=== PATIENT | female | born 1980 | race Caucasian/White ===

== ENCOUNTER 2023-05-09 11:35 | Emergency (ER) | payer SELFPAY ==
[2023-05-09 12:28] VITALS: BP 152/94; PULSE 104; RESP 16; TEMP 37.2; O2SAT 93; BMI 34.5
--- NOTE | 2023-05-09 12:29 | ED.GENADULT ---
HPI - General Adult General Chief complaint: ETOH/Substance Use Stated complaint: Needs detox Time Seen by Provider: 05/09/23 16:01 Source: patient and family Mode of arrival: ambulatory Limitations: no limitations History of Present Illness HPI narrative: 42 yo female here seeking detox from alcohol. Last drink 1 hr [employer]. No additional substance use. No SI/HI. No physical complaints. Also complaining of right lower dental pain. Related Data Previous Rx's Medication Instructions Recorded amoxicillin 875 mg-potassium 1 tab PO BID #14 tabs 05/09/23 clavulanate 125 mg tablet chlordiazepoxide HCl 25 mg capsule 25 mg PO Q6H PRN alcohol 05/09/23 withdrawal #12 caps Allergies Allergy/AdvReac Type Severity Reaction Status Date / Time No Known Allergies Allergy Verified 05/09/23 12:31 Review of Systems Review of Systems: Yes all other systems are reviewed and are negative Constitutional: Constitutional: Reports no additional constitutional complaints, Denies body ache(s), Denies chills, Denies fever(s), Denies headache(s) and Denies weakness Eyes: Eyes: Reports no additional eye complaints and Denies change in vision ENT: Reports system reviewed and no additional complaints, except as documented, Reports dental pain, Denies dizziness, Denies headache(s), Denies nasal congestion, Denies nasal discharge and Denies neck pain Cardiovascular: Cardiovascular: Reports no additional cardiovascular complaints, Denies chest pain, Denies leg edema and Denies dyspnea Respiratory: Respiratory: Reports no additional respiratory complaints, Denies cough and Denies dyspnea Gastrointestinal: Gastrointestinal: Reports no additional gastrointestinal complaints, Denies abdominal pain, Denies diarrhea, Denies nausea and Denies vomiting Genitourinary: Genitourinary: Reports no additional female genitourinary complaints and Denies urinary incontinence Musculoskeletal: Musculoskeletal: Reports no additional musculoskeletal complaints, Denies back pain, Denies arthralgias, Denies joint swelling, Denies neck pain, Denies numbness and Denies tingling Integumentary/Breasts: Skin/Breast: Reports system reviewed and no additional complaints, except as docu and Denies rash Neurologic: Reports system reviewed and no additional complaints, except as documented, Denies Abnormal speech present, Denies dizziness, Denies headache(s), Denies numbness, Denies tingling and Denies weakness PMFSH Past Medical History Attestation statement: The following information was validated with the patient. Source: old records reviewed and nursing notes reviewed Social History Advance Directives: No Advance Directives Information Provided: No Physical Exam ED Vital Signs: Vital Signs - 24 hr 05/09/23 12:28 Temperature 98.9 F Pulse Rate 104 H Respiratory Rate 16 Blood Pressure 152/94 H Pulse Oximetry 93 Oxygen Delivery Method Room Air BMI result Body Mass Index 34.5 Const General: cooperative, healthy appearing, comfortable and no acute distress Orientation/consciousness: patient oriented x3 Limitations: no limitations HENMT Head: Yes normal to inspection Ears: hearing grossly normal bilaterally General nose exam: Normal external nose present Face and sinus: Yes normal facial exam Mouth: Normal oral and palatal mucosa present Teeth image: 1. +gum swelling/erythema and TTP. No fluctuance or abscess No trismus Throat: Yes posterior oropharynx normal Eyes General: appearance normal, both eyes and all related structures Pupils: Equal, round and reactive pupils present Neck Neck: Yes normal visual inspection Chest Chest palpation & inspection: normal inspection of the chest Resp Effort & Inspection: normal respiratory effort Auscultation: clear to auscultation bilaterally Cardio Rate: regular rate Rhythm: regular rhythm Peripheral pulses: Peripheral pulses 2+ throughout GI Inspection: Yes normal to inspection Palpation (GI): Soft to palpation and nontender Auscultation: normal bowel sounds Back/Spine/Pelvis Thoracic/Lumbar Spine: thoracic and lumbar spine normal to inspection Skin General skin exam: no rashes or lesions noted Neuro General: patient oriented x3, no focal motor deficits and normal sensation to monofilament Cranial nerves: Yes Equal, round and reactive pupils present Cognition (Neuro): normal cognition Speech: No Abnormal speech present Gait exam (Neuro): Normal gait present Motor exam (neuro): 5/5 motor strength present throughout Extrem General: Yes normal to inspection Course Course Course Narrative: This is a rapid medical exam. Deferred additional HPI, ROS, PE to primary provider. 42 yo female w/ history of alcohol use disorder here seeking detox from alcohol, last drink 1 hr [employer]. No additional substance use. No SI/HI. Will need labs, JOSEPH, covid screen VSS Reevaluation(s) Reevaluation #1: Patient what with the life skills coach. Unfortunately there are no available detox beds a [place]. Patient is here with her parents. She has plans to stay with her parents this evening. I spoke to both her parents. They are willing to take a prescription for Librium and dispense this to the patient under their monitoring. The are were the patient should not be mixing alcohol with benzodiazepines. They were provided a resource list from a recovery team. Reviewed worrisome signs and symptoms of when to return to the emergency room. Comfortable plan for discharge home. Medical Decision Making Medical Decision Making [facility] Narrative: 42 yo female here seeking detox from alcohol. Last drink 1 hr [employer]. No additional substance use. No SI/HI. No physical complaints. Also c/o right lower dental pain Will need labs, JOSEPH, d/w with life skills coach Mild local swelling around tooth with no s/s of cellulitis/abscess Differential Diagnosis Differential Diagnoses: The differential diagnosis associated with the presentation includes Dental infection No evidence of cellulitis, dental abscess, Edward's angina Alcohol use disorder Admission/Observation Consideration of admission/observation: Escalation of care including admission/observation considered Patient does not appear to be actively withdrawing from alcohol requiring IV benzodiazepines, phenobarbital and or admission for further management Lab Data [facility] Lab Attestation statement: I reviewed the patient's lab results. Mildly elevated LFTs likely secondary to alcohol use disorder 05/09/23 13:58 05/09/23 13:58 Labs: Lab Results 05/09/23 Range/Units 13:58 WBC 7.0 (4.8-10.8) X10*3/uL RBC 4.01 L (4.20-5.50) X10*6/uL Hgb 13.1 (12.0-16.0) g/dl Hct 37.1 (37.0-47.0) % MCV 92.5 (80.0-98.0) fL MCH 32.7 (27.0-33.0) pg MCHC 35.3 H (31.0-35.0) g/dl RDW 12.4 (11.0-16.0) % Plt Count 145 L (160-400) X10*3/uL MPV 8.7 L (9.4-12.3) fL Immature Gran % (Auto) 0.3 (0.0-0.4) % Neut % (Auto) 69.0 (45-73) % Lymph % (Auto) 23.4 (20-40) % [place] % (Auto) 5.9 (2-11) % Eos % (Auto) 1.1 (0-4) % Baso % (Auto) 0.3 (0-2) % Lymph # (Auto) 1.6 (1.2-4.9) X10*3/uL [place] # (Auto) 0.4 (0.1-1.2) X10*3/uL Eos # (Auto) 0.1 (0.0-0.4) X10*3/uL Baso # (Auto) 0.0 (0.0-0.2) X10*3/uL Abs Immat Gran (auto) 0.02 (0.00-0.03) X10*3/uL Absolute Neuts (auto) 4.8 (2.0-8.3) x10*3/uL Absolute Nucleated RBC 0.000 (0.0-0.012) X10*3/uL Nucleated RBC % (auto) 0.0 (0.0-0.2) /100WBC Sodium 137 (135-145) mmol/L Potassium 3.4 (3.3-5.1) mmol/L Chloride 96 (96-108) mmol/L Carbon Dioxide 27 (22-29) mmol/L Anion Gap 17 (12-20) BUN 7 L (9-16) mg/dL Creatinine 0.63 (0.5-1.4) mg/dL Estim Creat Clear Calc 138.0 Estimated GFR > 60 Random Glucose 126 H (60-115) mg/dL Calcium 8.6 (8.4-10.2) mg/dL Total Bilirubin 0.8 (0.0-1.0) mg/dL Direct Bilirubin 0.5 (0.0-0.5) mg/dL AST 368 H (5-31) U/L ALT 92 H (0-31) U/L Alkaline Phosphatase 190 H (39-117) U/L Total Protein 7.1 (6.5-8.0) g/dL Albumin 4.2 (3.5-5.0) g/dL Ethyl Alcohol 426 H* mg/dL COVID-19 ([facility]) Negative (Negative) COVID-19 Clin Com See Note Independent Historian Clinical information obtained from an independent historian. History obtained from or confirmed by: Parent Discharge Plan Discharge Clinical Impression: Alcohol use disorder, Toothache Patient Disposition: Home, Self-Care Instructions: Toothache (ED), Alcohol Use Disorder (ED) Additional Instructions: Use resources provided to call for detox bed Prescriptions: New chlordiazepoxide HCl 25 mg capsule 25 mg PO Q6H PRN (Reason: alcohol withdrawal) Qty: 12 0RF amoxicillin-pot clavulanate 875-125 mg tablet 1 tab PO BID Qty: 14 0RF Referrals: Physician,Unknown J [Primary Care Provider] - 1 week
[2023-05-09 14:03] LABS: MANUAL DIFF FLAG NO
[2023-05-09 14:06] LABS: Basophils Percent Auto 0.3 % (0-2); Eosinophils Absolute Auto 0.1 X10*3/uL (0.0-0.4); Eosinophils Percent Auto 1.1 % (0-4); Hematocrit 37.1 % (37.0-47.0); Hemoglobin 13.1 g/dl (12.0-16.0); Imm Gran Abs Auto 0.02 X10*3/uL (0.00-0.03); Imm Gran Pct Auto 0.3 % (0.0-0.4); Lymphocytes Absolute Auto 1.6 X10*3/uL (1.2-4.9); Lymphocytes Percent Auto 23.4 % (20-40); Mean Corpuscular HGB Conc 35.3 g/dl (31.0-35.0); Mean Corpuscular Hemoglobin 32.7 pg (27.0-33.0); Mean Corpuscular Volume 92.5 fL (80.0-98.0); Mean Platelet Volume 8.7 fL (9.4-12.3); Monocytes Absolute Auto 0.4 X10*3/uL (0.1-1.2); Monocytes Percent Auto 5.9 % (2-11); Neutrophils Absolute Auto 4.8 x10*3/uL (2.0-8.3); Platelet Count 145 X10*3/uL (160-400); Red Blood Count 4.01 X10*6/uL (4.20-5.50); Red Cell Distribution Width 12.4 % (11.0-16.0)
[2023-05-09 14:17] LABS: Alanine Aminotransferase 92 U/L (0-31); Albumin Level 4.2 g/dL (3.5-5.0); Alkaline Phosphatase 190 U/L (39-117); Anion Gap 17 (12-20); Aspartate Amino Transferase 368 U/L (5-31); Bilirubin Direct 0.5 mg/dL (0.0-0.5); Bilirubin Total 0.8 mg/dL (0.0-1.0); Blood Urea Nitrogen 7 mg/dL (9-16); Calcium 8.6 mg/dL (8.4-10.2); Carbon Dioxide 27 mmol/L (22-29); Chloride 96 mmol/L (96-108); Estimated Glomerular Filt Rate > 60; Ethanol 426 mg/dL; Glucose Random 126 mg/dL (60-115); Potassium 3.4 mmol/L (3.3-5.1); Sodium 137 mmol/L (135-145); Total Protein 7.1 g/dL (6.5-8.0)
[2023-05-09 14:30] LABS: COVID-19 Test Negative (Negative); IDNOW Serial# BCCEAD1C
--- OUTSIDE RECORDS SUMMARY | 2023-05-09 16:28 | XMS_ITS | Continuity of Care Document ---
Author Name Unknown Organization [facility] Address [address] [place] [address]- Care Team Providers Care Banding Machine Operator Name Role Phone Uday Fink MD Primary Care Physician Encounter [facility] Date(s): 05/06/23 - 05/06/[address] [address]- Discharge Disposition: A-D/C Home Attending Physician: Deshaun Uribe MD Admitting Physician: Deshaun Uribe MD Referring Physician: Not on Staff, Referring MD Allergies, Adverse Reactions, Alerts No Known Allergies Immunizations Given and Recorded Vaccine Date Status Refusal Reason SARS-CoV-2 (COVID-19) mRNA BNT-162b2 vac 10/24/20 Given SARS-CoV-2 (COVID-19) mRNA BNT-162b2 vac 10/03/20 Given Medications Percocet-5/325 325 mg-5 mg oral tablet 1 tablet, By Mouth, Every 6 hours, PRN Pain, # 12 tablet, 0 Refills, Maintenance Start Date: 12/09/10 Status: Ordered Toradol Inj 15 mg, Injection, IV Push Slowly, Once, STAT, 05/06/23 15:58:00 EST, Stop date 05/06/23 15:58:00 EST Start Date: 05/06/23 Stop Date: 05/06/23 Status: Completed Vital Signs Most recent to oldest [Reference Range]: 1 2 3 Height 167 cm (05/06/23 12:36 PM) Weight 85.5 kg (05/06/23 12:36 PM) Oxygen Saturation [94-100 %] 97 % (05/06/23 6:43 PM) 92 % *L* (05/06/23 4:24 PM) 96 % (05/06/23 12:36 PM) Pulse Rate [55-90 bpm] 112 bpm *H* (05/06/23 6:43 PM) 121 bpm *H* (05/06/23 4:24 PM) 131 bpm *H* (05/06/23 12:36 PM) Blood Pressure [90-138/55-84 mm Hg] 178/84mm Hg *H* (05/06/23 6:43 PM) 185/102mm Hg *H* (05/06/23 4:24 PM) 166/120mm Hg *H* (05/06/23 12:36 PM) Respiratory Rate [16-30 br/min] 18 br/min (05/06/23 6:43 PM) 18 br/min (05/06/23 4:32 PM) 20 br/min (05/06/23 4:24 PM) Temperature [96.8-100.4 DegF] 97.5 DegF (05/06/23 12:36 PM) Mode of Delivery (Oxygen) Room air (05/06/23 6:43 PM) Room air (05/06/23 4:24 PM) Room air (05/06/23 12:36 PM) Temperature Route Oral (05/06/23 12:36 PM) Dry Weight 85.5 kg (05/06/23 12:36 PM) Note * Deshaun Uribe MD: PERFORM, SIGN, VERIFY Event Display: Patient Education Handout Authored Date: [id number] * Deshaun Uribe MD: PERFORM Event Display: Patient Education Leaflets Authored Date: [id number] Alcohol Abuse ?? [id number] Alcohol Abuse Alcoholic drinks harm you when you have too many of them. No set number of drinks means too much. Drinking that affects your life or your health is called alcohol abuse. Alcohol abuse can hurt your relationships with others. You may lose friends, a spouse, or even your job. You may be abusing alcohol if any of the following are true for you: ??? Duties at home or with child psychologist suffer because of drinking. ??? Duties at work or in school suffer because of drinking. ??? You have missed work or school because of drinking. ??? You use alcohol while driving or using machinery. ??? You have legal problems such as arrests because of drinking. ??? You keep drinking even though it causes serious problems in your life. Health problems Alcohol abuse causes many health problems.??Sometimes this can happen after only drinking a ???little. ??The effects depend on how much you drink at one time and how often you drink. The effects also depend on how long you drink. For example, months, years, or decades.??Alcohol affects all parts of your body Brain Alcohol affects the central nervous system. It can damage parts of the brain that control your balance and gait, memory, thinking, and emotions. It can cause: ??? Memory loss ??? Blackouts ??? Depression ??? Agitation ??? Sleep problems ??? Seizures These changes may be fpc (permanent). Heart and blood vessels Alcohol can damage heart muscle (cardiomyopathy). This can lead to: ??? Trouble breathing ??? Irregular heartbeat ??? Atrial fibrillation ??? Leg swelling ??? Heart failure Alcohol also makes the blood vessels stiff. This causes high blood pressure. All of these problems raise your risk of having a heart attack or stroke. Liver Alcohol causes fat to build up in the liver. This affects how the liver works. Alcohol also raises the risk for hepatitis. It can cause: ??? Belly (abdominal) pain ??? Belly swelling ??? Loss of appetite ??? Yellowed eyes or skin (jaundice) ??? Bleeding problems ??? Cirrhosis This can make it harder for you to fight off infections. The liver changes keep it from removing toxins in your blood that can cause brain disease (encephalopathy). This condition cause: ??? Confusion ??? Changed level of consciousness ??? Personality changes ??? Memory loss ??? Seizures, coma, and The liver changes can also cause the veins in your esophagus and stomach to become thin and swollenwith blood (varices). This can cause bleeding and vomiting of blood. Pancreas Alcohol can cause swelling (inflammation) of the pancreas (pancreatitis). This can cause belly pain, fever, and diabetes. Immune system Alcohol weakens your immune system. This makes it harder for you to fight infections and colds. It also makes it more likely for you to get pneumonia and tuberculosis. Cancer Alcohol raises the risk for several types of cancer. These include cancer of the mouth, esophagus, pharynx, larynx, liver, and breast. Sexual function Alcohol can lead to sexual problems. ?? Home care These guidelines will help you deal with alcohol abuse: ??? Admit you have a problem with alcohol. ??? Ask for help from your healthcare provider. Also ask for help from trusted family members or close friends. ??? Get help from people trained in dealing with alcohol abuse. This may be one-on-one counseling or group therapy. Or it may be an alcohol treatment program. ??? Join a self-help group for alcohol abuse such as Alcoholics Anonymous. ??? Stay away from people who abuse alcohol or tempt you to drink. ?? Follow-up care Follow up with your healthcare provider, or as advised. Contact these groups to get help: ??? Alcoholics Anonymous (AA) at www.aa.org. Or check the phone book for meetings near you. ??? National Alcohol and Substance Abuse Information Center (NASAIC) at www.[place] or 847-324-2990 ??? National [place] on Alcoholism and Drug Dependence (NCADD) at www.ncadd.org or 960-UMG-DEBC (843-249-6946) ?? Call 911 Call 911 if any of these occur: ??? Trouble breathing or slow, irregular breathing ??? Chest pain ??? Sudden weakness on one side of your body or sudden trouble speaking ??? Heavy bleeding or vomiting blood ??? Very drowsy or trouble awakening ??? Fainting or loss of consciousness ??? Rapid heart rate ??? Seizure ?? When to seek medical care Call your healthcare provider right away if any of these occur:? Confusion ??? Seeing, hearing, or feeling things that aren???t there (hallucinations) ??? Pain in your upper belly that gets worse ??? Vomiting that continues, vomiting with blood, or black or tarry stools ??? Severe shakiness ?? Last Reviewed Date: 2021 ?? 2475-1334 [employer]. All rights reserved. This information is not intended as a substitute for professional medical care. Always follow your healthcare professional's instructions. ?? Patient Care team information Care Team Personnel Name: Uday Fink MD Position: [facility] Physician - Primary Care Member Role: PCP Address: Address: [address] [place] [address]- [place] Name: Deshaun Uribe MD Position: [facility] ED Medicine MD Member Role: Admitting Physician Address: Address: [address] [place] [address]- Name: Carol Caban RN Position: [facility] ED RN W/OE and Tasks Member Role: Patient Care Provider Care Team Related Persons Name: ALISSON GUERRERO Address: home [address] [address] Name: KRYSTAL WYNNE Address: home [address] [place] [address]
--- NOTE | 2023-05-10 10:32 | MHC.RECOVSUP ---
Met with pt in waiting room who is here for [facility]. Pt and family report being told [facility] has ATS bed for pt and were upset to hear we do not have ATS here. Pt reports drinking about 15-20 nips a day and has never been to ATS before but would like to now. Reviewed ATS options with pt and family who are not open to going to ATS out of the immediate area. At this time there are no beds at [facility] and pt was provided resources to follow up in the morning to continue trying to get a bed. PT and family have no other questions at this time.
== END 2023-05-09 16:59 | disposition home or self-care (01) ==
PROVIDERS: Nurse Practitioner Family; Emergency Provider Emergency Medicine
DX: F10.988 Alcohol use, unspecified with other alcohol-induced disorder (principal); Y90.8 Blood alcohol level of 240 mg/100 ml or more; K08.89 Other specified disorders of teeth and supporting structures
CPT/HCPCS: 36415; 80048; 80076; 80307; 85025; 87635; 99283